=== PATIENT | male | born 1975 | race Two or more races ===

== ENCOUNTER 2024-10-20 05:49 | Emergency (ER) | payer OTHER ==
[~2024-10-20] VITALS: Ht 167.6 cm; Wt 54.4 kg
[2024-10-20] MEDS ORDERED: PROAIR RESPICL90 MCG IH (05:55)
[2024-10-20] MEDS ORDERED: KETOROLAC TROMETHAMINE 60 MG VIAL IM STA (07:05)
[2024-10-20] MEDS ORDERED: 0.9 % SODIUM CHLORIDE 1,000 ML IV ONE (07:15)
[2024-10-20] MEDS ORDERED: KETOROLAC TROMETHAMINE 60 MG VIAL IM ONE (07:24)
[2024-10-20 08:08] LABS: HEMATOCRIT 42.2 % (39.0-48.0); HEMOGLOBIN 14.7 g/dL (13-16.00); MEAN CELL VOLUME 85.7 fL (80.0-100.00); MEAN CORPUSCULAR HEMOGLOBIN 29.7 pg (27.00-32.0); MEAN CORPUSCULAR HGB CONC 34.7 g/dl (32.0-36.0); PLATELET COUNT 295 K/uL (150-450); RED BLOOD COUNT 4.93 M/uL (4.00-6.00); RED CELL DISTRIBUTION WIDTH 13.6 % (11.5-14.5)
[2024-10-20 08:34] LABS: ALBUMIN 3.8 gm/dL (3.4-5.0); BILIRUBIN TOTAL 0.68 mg/dL (0.3-1.2); CALCIUM 9.3 mg/dL (8.5-10.1); CREATININE SERUM 0.78 mg/dL (0.70-1.30); GFR 105.36; POTASSIUM 4.36 mEq/L (3.5-5.1); TOTAL PROTEIN 7.8 gm/dL (6.4-8.2)
[2024-10-20 09:37] LABS: URINE APPEARANCE Clear; URINE BILIRRUBIN Negative (NEGATIVE); URINE BLOOD Negative; URINE COLOR Yellow; URINE GLUCOSE Negative (NEGATIVE); URINE KETONE Negative (NEGATIVE); URINE LEUKOCYTE Negative; URINE NITRATE Negative; URINE PROTEIN Negative (NEGATIVE); URINE UROBILINOGEN 0.2 E.U./dl
[2024-10-20 09:41] LABS: URINE BACTERIA 13.4 uL (0.0-1933); URINE RBC 5.4 uL (0.0-20.8); URINE WBC 1.8 uL (0.0-23.2)
[2024-10-20 09:46] LABS: URINE EPITHELIAL CELLS 0.9 uL (0.0-38.8)
[2024-10-20 10:09] LABS: ABG PH 7.397 (7.35-7.45); ABG PO2 89.6 mmHg (80-100); ABG pCO2 42.4 mmHg (35-45); BASE EXCESS 0.5 mmol/l; BICARBONATE 25.5 mmol/l (23-25); SaO2 96.8 %; Tco2 26.8 mmol/l
[2024-10-20 10:42] LABS: allen test SATISFACTORY; o2 21 %; puncture site RADIAL RIGHT
[2024-10-20] MEDS ORDERED: KETO10TA2 PO (10:49)
== END 2024-10-20 11:07 | disposition home or self-care (01) ==
LOC: ER 05:49
PROVIDERS: General Practice
DX: M54.89 Other dorsalgia (principal); R06.02 Shortness of breath; Z20.822 Contact with and (suspected) exposure to COVID-19; Z87.09 Personal history of other diseases of the respiratory system